=== PATIENT | male | born 1965 | race African-American/Black ===

== ENCOUNTER 2019-02-10 14:26 | Emergency (ER) | payer MEDICAID ==
[~2019-02-10] VITALS: Ht 172.7 cm; Wt 80.0 kg
[2019-02-10] MEDS ORDERED: SODIUM CHLORIDE 0.9% 1,000 ML IV ONE (14:54)
[2019-02-10] MEDS ORDERED: LEVETIRACETAM 1000MG/100ML 100 ML IV ONE (15:00)
[2019-02-10 15:26] LABS: BASOPHILS % 1.1 % (0.0-2.0); EOSINOPHILS % 2.3 % (0.0-5.0); HEMATOCRIT. 42.4 % (42.0-52.0); HEMOGLOBIN. 14.5 g/dL (14.0-18.0); LYMPHOCYTES % 29.5 % (20.0-50.0); MEAN CORPUSCULAR HEMOGLOBIN 36.4 pg (28.0-32.0); MEAN CORPUSCULAR VOLUME 106.5 fL (80.0-94.0); MEAN PLATELET VOLUME 7.4 fl (7.4-10.4); MONOCYTES % 13.1 % (2.0-8.0); PLATELET 147 x1000/uL (130-400); RED BLOOD CELL COUNT 3.98 mill/uL (4.7-6.1); RED CELL DISTRIBUTION WIDTH 15.4 % (11.6-14.6)
[2019-02-10 15:31] LABS: CHLORIDE 94 mEq/L (98-107)
[2019-02-10 15:35] LABS: ETHANOL BLOOD < 10 mg/dL
[2019-02-10 15:38] LABS: CREATINE KINASE 104 IU/L (39-308)
[2019-02-10 15:41] LABS: CARBAMAZEPINE < 0.5 ug/mL (4-12); VALPROIC ACID < 3.0 ug/mL (50-100)
[2019-02-10 15:46] LABS: PHENOBARBITAL < 2.1 ug/mL (15.0-40.0)
[2019-02-10] MEDS ORDERED: POTASSIUM CHLORIDE 20MEQ TABLET SR PO ONE (16:00)
[2019-02-10] MEDS ORDERED: PHENYTOIN SODIUM 500 MG in SODIUM CHLORIDE 0.9% 50 ML IV ONE (16:00)
[2019-02-10 18:52] VITALS: BP 125/69
== END 2019-02-10 18:58 | disposition home or self-care (01) ==
LOC: ER 14:26 → CANBEDREQ 20:15
DX: R56.9 Unspecified convulsions (principal); J45.909 Unspecified asthma, uncomplicated
CPT/HCPCS: 36415; 70450; 80053; 80156; 80165; 80184; 80185; 80320; 82550; 85025; 96365; 96367; 99284; J1165; J1953; J7030; G0480